=== PATIENT | female | born 1970 | race Caucasian/White ===

== ENCOUNTER 2023-06-15 13:18 | Outpatient (AMB) | payer BC, SELFPAY ==
[2023-06-15 13:15] VITALS: BP 140/80; BMI 33.7
--- NOTE | 2023-06-15 13:15 | MHC.OFFVIS ---
Intake Vital Signs 06/15/23 13:15 Height 5 ft 3 in Weight 190 lb 6 oz BMI 33.7 BP 140/80 H Blood Pressure Location Rt brachial Position Sitting Intake Visit Reasons: screening colo Intake Note: Patient here for new patient appointment, Colonoscopy screening. Patient has not had a colonoscopy in the past. cc: no concerns. Allergies No Known Allergies Allergy (Verified 06/15/23 13:16) Medication List - Last Reconciled 06/15/23 by Christine Hyatt PA-C amlodipine 10 mg PO DAILY cholecalciferol (vitamin D3) 25 mcg PO DAILY hydrochlorothiazide 12.5 mg PO DAILY losartan 100 mg PO DAILY multivitamin 1 tab PO DAILY HPI HPI Comments History of Present Illness Details A 52 y/o female referred for index screening colonoscopy- no family hx crc Appetite is good no acid reflux Bowels normal - BM daily No nausea, vomiting, hematemesis, hematochezia fevers PFSH Medical History (Updated 06/15/23 @ 13:36 by Christine Hyatt PA-C) Hypertension DVT (deep vein thrombosis) in Surgical History Hx of varicose vein ligation Hx of thumb surgery Family History Father HTN (hypertension) Mini stroke Mother Diabetes HTN (hypertension) Mini stroke Sister Anxiety Obesity Social History Household Members: Family Alcohol intake: current Alcohol intake frequency: 3 or more drinks per day Patient Tobacco Use Status: Former Tobacco user Tobacco use type: Cigarette Use of substances other than those prescribed or required for medical reasons: No Review of Systems Const All systems reviewed & are unremarkable except as noted in HPI and below Card Denies chest pain and Denies dyspnea Resp Denies dyspnea GI Denies abdominal pain, Denies hematochezia, Denies change in bowel habits, Denies heartburn, Denies diarrhea and Denies nausea Physical Exam Vital Signs: Last Vital Signs BP 140/80 H 06/15/23 13:15 BMI result Body Mass Index 33.7 Const General: cooperative, healthy appearing, comfortable and no acute distress Orientation/consciousness: patient oriented x3 Limitations: no limitations Eyes Sclerae: sclerae normal Resp Effort & Inspection: normal respiratory effort Auscultation: clear to auscultation bilaterally, no rales, no rhonchi and no wheezes Cardio Rate: regular rate Rhythm: regular rhythm Heart sounds: S1 normal heart sound present and S2 normal heart sound present GI Palpation (GI): Soft to palpation and nontender Auscultation: normal bowel sounds Skin General skin exam: no rashes or lesions noted Neuro General: patient oriented x3 Extrem General: Yes full ROM Psych Appearance: grossly normal and well kempt Mental Status: mental status grossly normal Speech and movement: Normal speech and movement present Affect: normal affect Attitude: cooperative Thought process: Normal thought process present Thought content: Normal thought content present Insight: Good insight present (Psych) Judgement: Good judgement present (Psych) Assessment & Plan Assessment & Plan (1) Encounter for screening colonoscopy: Comment: having labs for pcp colonoscopy- Code(s): Z12.11 - Encounter for screening for malignant neoplasm of colon Plan: index screening colonoscopy Plan Index screening colonoscopy Orders: Orders Colonoscopy - GI Use Only Today Z12.11 - Encounter for screening for malignant neoplasm of colon Medications: New bisacodyl (Dulcolax (bisacodyl)) Take 4 tablets by mouth at 12:00pm the day before your procedure. 20 mg (4 x 5 mg) PO ONCE 1 day 4 tabs 0RF colonoscopy prep Z12.11 - Encounter for screening for malignant neoplasm of colon polyethylene glycol 3350 (Miralax) Take as directed by mouth the day before your procedure. 238 grams PO ONCE 1 day PRN 238 grams 0RF laxative effect Patient Instructions: Very pleasant 52-year-old female referred for index screening colonoscopy no GI complaints. No family history of GI cancer Discussed procedure, rare risks, need for escorted due to anesthesia as well as MiraLax Gatorade split prep. Literature given Opportunity for questions Encouraged to call with questions or concerns Appreciate the opportunity assist in care the patient Coding Level of Care Code New Pt Level 3 (30323) Diagnoses Encounter for screening colonoscopy Z12.11 Time Spent (min) 30
== END 2023-06-15 13:53 | disposition home or self-care (01) ==
PROVIDERS: PCP Physician Assistant; Visit Provider Physician Assistant
DX: Z01.818 Encounter for other preprocedural examination (principal); Z12.11 Encounter for screening for malignant neoplasm of colon
CPT/HCPCS: S0285

== ENCOUNTER → 2023-06-15 13:18 | Outpatient (BNVA) | payer BC, SELFPAY | PROVIDERS: PCP Physician Assistant; Visit Provider Physician Assistant ==

== ENCOUNTER 2025-05-22 14:21 | Outpatient (REF) | payer BC, SELFPAY | END 2025-05-22 14:22 | disposition home or self-care (01) | LOC: CF 14:21 | DX: Z13.89 Encounter for screening for other disorder (principal) ==

== ENCOUNTER → 2025-10-01 10:25 | Outpatient (BNV) | payer BC, SELFPAY | PROVIDERS: PCP Nurse Practitioner Primary Care; Referring Provider Nurse Practitioner Primary Care; Visit Provider Internal Medicine Medical Oncology | DX: I82.401 Acute embolism and thrombosis of unspecified deep veins of right lower extremity (principal) | CPT/HCPCS: 99204 ==